=== PATIENT | female | born 1960 | race Caucasian/White ===

== ENCOUNTER 2016-06-26 00:43 | Emergency (ER) | payer MEDICARE, MEDICAID ==
[~2016-06-26] VITALS: Ht 162.6 cm; Wt 79.1 kg
[~2016-06-26 00:43] MED LIST: HYDR-3307 PO; LISI5TAB7 PO; METF850T2 PO
[2016-06-26] MEDS ORDERED: GABA600T2 PO (00:56)
[2016-06-26] MEDS ORDERED: KETOROLAC 30 MG/1 ML ONE (00:56)
[2016-06-26] MEDS ORDERED: HYDROcodone/APAP 5/325 TABLET ONE (00:56)
[2016-06-26] MEDS ORDERED: HYDROcodone/APAP 5/325 TABLET PO ONE (01:00)
[2016-06-26] MEDS ORDERED: KETOROLAC 30 MG/1 ML IM ONE (01:00)
[2016-06-26 01:40] LABS: ASPARTATE AMINO TRANSFERASE 11 U/L (15-37); BLOOD UREA NITROGEN 12 mg/dL (7-18)
[2016-06-26 02:19] VITALS: BP 158/88
== END 2016-06-26 02:21 | disposition home or self-care (01) ==
LOC: ED 01:15
DX: S39.012A Strain of muscle, fascia and tendon of lower back, initial encounter (principal); E11.40 Type 2 diabetes mellitus with diabetic neuropathy, unspecified; E78.5 Hyperlipidemia, unspecified; I10 Essential (primary) hypertension; M19.90 Unspecified osteoarthritis, unspecified site; G89.29 Other chronic pain; K21.9 Gastro-esophageal reflux disease without esophagitis; Z90.49 Acquired absence of other specified parts of digestive tract; Z90.710 Acquired absence of both cervix and uterus; X58.XXXA Exposure to other specified factors, initial encounter; Y93.89 Activity, other specified; Y99.8 Other external cause status; Y92.89 Other specified places as the place of occurrence of the external cause
CPT/HCPCS: 36415; 80053; 81003; 85025; 85651; 96372; 99284; J1885

== ENCOUNTER 2016-07-03 19:35 | Emergency (ER) | payer MEDICARE, MEDICAID ==
[~2016-07-03] VITALS: Ht 162.6 cm; Wt 83.9 kg
[~2016-07-03 19:35] MED LIST changes: +GABA600T2 PO
[2016-07-03] MEDS ORDERED: MORPHINE SULFATE 4 MG/ML, 1ML ONE (20:24)
[2016-07-03] MEDS ORDERED: HYDROmorphone 2 MG/ML, 1ML IVPush PRN (20:30)
[2016-07-03] MEDS ORDERED: HYDROmorphone 1 MG/ML, 1ML ONE (20:34)
[2016-07-03 22:00] VITALS: BP 141/89
== END 2016-07-03 22:02 | disposition home or self-care (01) ==
LOC: ED 21:56
DX: M47.897 Other spondylosis, lumbosacral region (principal); M47.896 Other spondylosis, lumbar region; K21.9 Gastro-esophageal reflux disease without esophagitis; E11.9 Type 2 diabetes mellitus without complications; I10 Essential (primary) hypertension; Z90.710 Acquired absence of both cervix and uterus; Z90.49 Acquired absence of other specified parts of digestive tract; Z88.8 Allergy status to other drugs, medicaments and biological substances; F17.200 Nicotine dependence, unspecified, uncomplicated
CPT/HCPCS: 96374; 99284; J1170

== ENCOUNTER 2016-07-04 07:39 | Emergency (ER) | payer MEDICARE, MEDICAID ==
[~2016-07-04] VITALS: Ht 162.6 cm; Wt 90.0 kg
[2016-07-04] MEDS ORDERED: DIPHENHYDRAMINE 50 MG/ML, 1ML IVPush ONE (08:30)
[2016-07-04] MEDS ORDERED: ONDANSETRON 2MG/ML, 2ML IVPush ONE (08:30)
[2016-07-04] MEDS ORDERED: METOCLOPRAMIDE 5 MG/ML, 2ML IVPush ONE (08:30)
[2016-07-04] MEDS ORDERED: SODIUM CHLORIDE 0.9% 1,000ML IVBOLUS ONE (08:30)
[2016-07-04] MEDS ORDERED: SODIUM CHLORIDE FLUSH 10ML SYR IVF ONE (08:30)
[2016-07-04] MEDS ORDERED: DIPHENHYDRAMINE 50 MG/ML, 1ML ONE (08:44)
[2016-07-04] MEDS ORDERED: METOCLOPRAMIDE 5 MG/ML, 2ML ONE (08:44)
[2016-07-04] MEDS ORDERED: ONDANSETRON 2MG/ML, 2ML ONE (08:45)
[2016-07-04 09:10] LABS: BLOOD UREA NITROGEN 17 mg/dL (7-18)
[2016-07-04 09:12] LABS: ASPARTATE AMINO TRANSFERASE 35 U/L (15-37)
[2016-07-04 11:19] VITALS: BP 133/75
== END 2016-07-04 11:22 | disposition home or self-care (01) ==
LOC: ED 11:16
DX: R11.2 Nausea with vomiting, unspecified (principal); R10.11 Right upper quadrant pain; I10 Essential (primary) hypertension; E11.9 Type 2 diabetes mellitus without complications; K21.9 Gastro-esophageal reflux disease without esophagitis; Z90.710 Acquired absence of both cervix and uterus; Z90.49 Acquired absence of other specified parts of digestive tract; F17.200 Nicotine dependence, unspecified, uncomplicated
CPT/HCPCS: 36415; 80053; 81001; 83690; 85025; 87086; 93005; 96361; 96374; 96375; 99285; J1200; J2405; J2765; J7030

== ENCOUNTER 2016-07-17 19:51 | Emergency (ER) | payer MEDICARE, MEDICAID ==
[~2016-07-17] VITALS: Ht 162.6 cm; Wt 88.6 kg
[2016-07-17 20:53] LABS: ASPARTATE AMINO TRANSFERASE 13 U/L (15-37); BLOOD UREA NITROGEN 12 mg/dL (7-18)
[2016-07-17 23:31] VITALS: BP 127/71
== END 2016-07-17 23:42 | disposition home or self-care (01) ==
LOC: ED 21:05
DX: M76.9 Unspecified enthesopathy, lower limb, excluding foot (principal); M25.551 Pain in right hip; E78.5 Hyperlipidemia, unspecified; K21.9 Gastro-esophageal reflux disease without esophagitis; I10 Essential (primary) hypertension; E11.9 Type 2 diabetes mellitus without complications; Z88.0 Allergy status to penicillin; Z90.49 Acquired absence of other specified parts of digestive tract; Z88.8 Allergy status to other drugs, medicaments and biological substances; Z88.6 Allergy status to analgesic agent; Z90.710 Acquired absence of both cervix and uterus
CPT/HCPCS: 36415; 72220; 80053; 81001; 83690; 85025

== ENCOUNTER 2016-07-22 06:24 | Emergency (ER) | payer MEDICARE, MEDICAID ==
[~2016-07-22] VITALS: Ht 165.1 cm; Wt 90.0 kg
[2016-07-22] MEDS ORDERED: PROCHLORPERAZINE 5 MG/ML, 2ML ONE (06:46)
[2016-07-22] MEDS ORDERED: KETOROLAC 30 MG/1 ML ONE (06:46)
[2016-07-22] MEDS ORDERED: DIPHENHYDRAMINE 50 MG/ML, 1ML ONE (06:46)
[2016-07-22] MEDS ORDERED: SODIUM CHLORIDE 0.9% 1,000ML IVBOLUS ONE (07:00)
[2016-07-22] MEDS ORDERED: DIPHENHYDRAMINE 50 MG/ML, 1ML IVPush ONE (07:00)
[2016-07-22] MEDS ORDERED: PROCHLORPERAZINE 5 MG/ML, 2ML IVPush ONE (07:00)
[2016-07-22] MEDS ORDERED: KETOROLAC 30 MG/1 ML IVPush ONE (07:00)
[2016-07-22 07:21] LABS: BLOOD UREA NITROGEN 9 mg/dL (7-18)
[2016-07-22 08:39] VITALS: BP 161/89
== END 2016-07-22 08:42 | disposition home or self-care (01) ==
LOC: ED 07:36
DX: G43.009 Migraine without aura, not intractable, without status migrainosus (principal); E11.9 Type 2 diabetes mellitus without complications; I10 Essential (primary) hypertension
CPT/HCPCS: 36415; 80048; 82040; 85025; 96361; 96374; 96375; 99285; J0780; J1200; J1885; J7030